=== PATIENT | female | born 1985 | race Caucasian/White ===

== ENCOUNTER → 2021-04-15 | Outpatient (CLI) | payer OTHER ==
[~2021-04-15] VITALS: Ht 175.3 cm; Wt 86.4 kg
[2021-04-15] VITALS (8 sets, daily range): BP systolic 113–134; BP diastolic 64–95
[~2021-04-15] MED LIST: 0.9 % SODIUM CHLORIDE 10 ML DISP.SYRIN. IV PRN; CONTRAST GIVEN. MC PRN; DEXT30CA6 PO; HEPARIN for IV BOLUS 10,000 UNIT/10 ML VIAL. IART ONE; HEPARIN for IV BOLUS 10,000 UNIT/10 ML VIAL. ONE; IODIXANOL 320 MG/ML 100 ML VIAL. IART ONE; IODIXANOL 320 MG/ML 100 ML VIAL. ONE; LIDOCAINE 1% PF 2 ML VIAL. INJ ONE; LIDOCAINE 1% PF 2 ML VIAL. ONE; LORA10TA68 PO; MIDAZOLAM HCL/PF 5 MG/5 ML VIAL. IV ONE; MIDAZOLAM HCL/PF 5 MG/5 ML VIAL. ONE; NITROGLYCERIN 200 MCG/2 ML SYRINGE FOR CATH/VASC LAB. IART ONE; NITROGLYCERIN 200 MCG/2 ML SYRINGE FOR CATH/VASC LAB. ONE; NITROGLYCERIN SUBLINGUAL 0.4 MG BOTTLE OF 25. SL PRN; VERAPAMIL 5 MG/2 ML VIAL. IART ONE; VERAPAMIL 5 MG/2 ML VIAL. ONE; fentaNYL PF VIAL 100 MCG/2 ML VIAL IV ONE; fentaNYL PF VIAL 100 MCG/2 ML VIAL ONE
[2021-04-15 09:49] LABS: U PREG PATIENT NEGATIVE (NEG)
--- NOTE | 2021-04-15 10:59 | PDOC ---
MODERATE SEDATION ASSESSMENT RISKS/ALTERNATIVES Risks/Alternatives Risks and alternatives of this type of sedation and procedure discussed with: RISK/ALTERNATIVES: Patient H & P ON CHART H & P H & P on chart and reviewed for co-morbid conditions and appropriate labs. H&P ON CHART: Yes STATUS PREG STATUS ASSESSED: Yes MEDS/ALLERGIES REVIEWED Meds/Allergies Reviewed Medications and Allergies including time and route of recently administered narcotics and sedatives. MEDS/ALLERGIES REVIEWED: Yes ASA RATING ASA RATING: II AIRWAY ASSESSMENT Airway Assessment Airway patency, oral function limitations, presence of caps, crowns, dentures, partials, and ability to extend neck assessed. AIRWAY ASSESSMENT: Yes MALLAMPATI SCORE MALLAMPATI SCORE: II PRE-SEDATION ASSESSMENT PRE-SEDATION ASSESSMENT: Yes VICENTA IRWIN MD Apr 15, 2021 10:59
--- NOTE | 2021-04-15 13:06 | NUR ---
pt A&O x4. VSS. tolerating po well. ambulated to BR w/o problem. TR band removed and access site cleaned and dressed. no bleeding or swelling noted. armboard reapplied to rt hand/wrist area. d/c instructions given, questions answered. taken to echo sparks for pending echo .
--- NOTE | 2021-04-15 13:38 | CARD ---
MR#: [id number] Date of Study: 04/15/2021 Ordering Physician: VICENTA BENTON, Referring Physician: VICENTA BENTON, Tech: RT Rubens(R) APPROVED REPORT Technologist: RT Rubens(R) Nurse: Janelle Mesa RN Procedure(s) performed: Left heart catheterization, selective coronary angiography via right transfem oral approach fl time: 2.4 min dose: 27 gycm2 contrast: 71 ml moderate sedation: 35 MINS INDICATION The indication(s) include : non-STEMI . [facility] Clinical Frailty Scale [facility] Clinical Frailty Scale: Very Fit Heart Failure Heart Failure: No CASE TECHNIQUE IV conscious sedation was used throughout procedure with appropriate monitoring and was performed in the presence of a registered nurse who was an independent trained observer other than the physician p erforming the procedure. During this case, Fluoroscopy and low osmolar contrast were used for imaging . Specimen(s) Removed: No Estimated Blood loss: 15 cc's. PROCEDURE NARRATIVE After explaining the risks, benefits and alternative options, informed consent was obtained from ramana ent. Patient was brought to the cardiac Degreasing Solution Reclaimer and right wrist was prepped and draped in the usual fashion after confirming a positive modified Adolfo's test. Arterial access was obtained in the righ t radial artery and a 6 Mauritian sheath was inserted. 5 Mauritian Bala catheter was used to perform piyush ective angiography of the left and right coronary arteries. LVEDP and transaortic gradients were rekha sured. Patient tolerated the procedure well. Hemostasis was achieved using TR band. There were no immediate complications. The following findings were noted. FINDINGS 1. Hemodynamics: Left ventricular end-diastolic pressure of 15 mmHg. No pullback gradient across th e aortic valve. 2. Coronary angiography: a. The left main coronary artery arose from the left sinus of Valsalva, gave rise to the left anteri or descending and left circumflex arteries and did not show any significant stenosis. b. The left anterior descending artery did not show any significant stenosis. c. The left circumflex artery was a large-caliber vessel that did not show any significant stenosis. d. The right coronary artery was a ldominant vessel arising from the right sinus of Valsalva that di d not show any significant stenosis. 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 Recommend moncho luna Signed by : Vicenta Benton, Electronically Approved : 04/15/2021 13:37:56
--- NOTE | 2021-04-15 16:48 | CARD ---
MR#: [id number] Date of Study: 04/15/2021 Ordering Physician: VICENTA IRWIN, Referring Physician: VICENTA IRWIN Tech: Daria Tay [facility] APPROVED REPORT EXAM: Two-dimensional and M-mode echocardiogram with Doppler and color Doppler. Other Information Quality : AverageHR: 69bpm Rhythm : NSR INDICATION Chest Pain 2D DIMENSIONS RVDd3.5 (2.9-3.5cm)Left Atrium(2D)3.2 (1.6-4.0cm) IVSd1.0 (0.7-1.1cm)Aortic Root(2D)3.2 (2.0-3.7cm) LVDd4.7 (3.9-5.9cm)LVOT Diameter1.9 (1.8-2.4cm) PWd0.9 (0.7-1.1cm)IVSs1.5 (0.8-1.2cm) LVDs2.9 (2.5-4.0cm)FS (%) 39.0 % PWs1.4 (0.8-1.2cm)SV72.6 ml Aortic Valve AoV Peak Rafa.144.2cm/sAoV VTI25.6cm AO Peak GR.8.3mmHgLVOT Peak Rafa.125.9cm/s LVOT VTI 24.47cmAO Mean GR.4mmHg NELY (VMAX)1.11yn6YZY (VTI)2.75cm2 Mitral Valve MV E Jleriqjn39.9cm/sMV DECEL LTHP837na MV A Uxvdvhog53.2cm/sMV KND11ck E/A Ratio1.4MVA (PHT)3.61cm2 TDI E/Lateral E'4.6E/Medial E'7.9 Pulmonary Valve PV Peak Wyovkmhw539.6cm/sPV Peak Grad.7mmHg LEFT VENTRICLE The left ventricle is normal size. There is normal left ventricular wall thickness. The left ventricu lar systolic function is normal and the ejection fraction is within normal range. Estimated ejection fraction 60-65%. There is normal LV segmental wall motion. The left ventricular diastolic function a nd filling is normal for age. RIGHT VENTRICLE The right ventricle is normal size. There is normal right ventricular wall thickness. The right ventr icular systolic function is normal. ATRIA The left atrium size is normal. The right atrium size is normal. The interatrial septum is intact wit h no evidence for an atrial septal defect or patent foramen ovale as noted on 2-D or Doppler imaging. AORTIC VALVE The aortic valve is normal in structure and function. Doppler and Color Flow revealed no significant aortic regurgitation. There is no significant aortic valvular stenosis. MITRAL VALVE The mitral valve is normal in structure and function. There is no evidence of mitral valve prolapse. There is no mitral valve stenosis. Doppler and Color-flow revealed trace mitral regurgitation. TRICUSPID VALVE The tricuspid valve is normal in structure and function. Doppler and Color Flow revealed trace tricus pid regurgitation. There is no tricuspid valve stenosis. PULMONIC VALVE The pulmonary valve is normal in structure and function. Doppler and Color Flow revealed no pulmonic valvular regurgitation. GREAT VESSELS The aortic root is normal in size. The ascending aorta is normal in size. The IVC is normal in size a nd collapses >50% with inspiration. PERICARDIAL EFFUSION There is no evidence of significant pericardial effusion. Critical Notification Critical Value: No <Conclusion> The left ventricle is normal size. The left ventricular systolic function is normal and the ejection fraction is within normal range. Estimated ejection fraction 60-65%. There is normal LV segmental wall motion. Doppler and Color Flow revealed no significant aortic regurgitation. There is no significant aortic valvular stenosis. Doppler and Color-flow revealed trace mitral regurgitation. Doppler and Color Flow revealed trace tricuspid regurgitation. There is no evidence of significant pericardial effusion. Signed by : Best Engle MD Electronically Approved : 04/15/2021 16:48:10
== END | disposition home or self-care (01) ==
LOC: CCL 09:00
PROVIDERS: ATTEND Internal Medicine Cardiovascular Disease
DX: I21.4 Non-ST elevation (NSTEMI) myocardial infarction (principal); I08.1 Rheumatic disorders of both mitral and tricuspid valves; Z79.899 Other long term (current) drug therapy; Z98.890 Other specified postprocedural states; Z72.89 Other problems related to lifestyle
CPT/HCPCS: 81025; 93306; 93458; 99152; 99153; C1769; C1894; J1644; J2250; J3010; J3490; Q9967; C8929